=== PATIENT | female | born 2000 | race Two or more races ===

== ENCOUNTER 2018-05-21 16:00 | Emergency (ER) | payer MEDICAID, OTHER ==
[~2018-05-21] VITALS: Ht 162.6 cm; Wt 73.5 kg
[2018-05-21 16:11] VITALS: BP 131/76
== END 2018-05-21 17:34 | disposition home or self-care (01) ==
LOC: ER 16:13
DX: S39.012A Strain of muscle, fascia and tendon of lower back, initial encounter (principal); X50.1XXA Overexertion from prolonged static or awkward postures, initial encounter; Y93.89 Activity, other specified; Y92.89 Other specified places as the place of occurrence of the external cause; Y99.8 Other external cause status

== ENCOUNTER 2018-07-27 10:11 | Emergency (ER) | payer OTHER ==
[~2018-07-27] VITALS: Ht 162.6 cm; Wt 72.6 kg
[2018-07-27 10:25] VITALS: BP 113/61
[2018-07-27] MEDS ORDERED: IBUPROFEN 600 MG TAB PO ONE (11:00)
[2018-07-27] MEDS ORDERED: METHOCARBAMOL 500 MG TAB PO ONE (11:00)
[2018-07-27] MEDS ORDERED: ONDANSETRON ODT 4 MG TAB PO ONE ×2 (12:48→13:00)
== END 2018-07-27 13:22 | disposition home or self-care (01) ==
LOC: ER 10:11
DX: S40.022A Contusion of left upper arm, initial encounter (principal); V53.5XXA Driver of pick-up truck or van injured in collision with car, pick-up truck or van in traffic accident, initial encounter; Y93.89 Activity, other specified; Y99.8 Other external cause status; Y92.410 Unspecified street and highway as the place of occurrence of the external cause
CPT/HCPCS: 99284; Q0162

== ENCOUNTER 2020-06-17 14:40 | Emergency (ER) | payer OTHER ==
[~2020-06-17] VITALS: Ht 162.6 cm; Wt 70.3 kg
[2020-06-17 15:31] VITALS: BP 115/74
== END 2020-06-17 16:00 | disposition home or self-care (01) ==
LOC: ER 14:40
DX: S61.211A Laceration without foreign body of left index finger without damage to nail, initial encounter (principal); W22.8XXA Striking against or struck by other objects, initial encounter; Y93.89 Activity, other specified; Y92.89 Other specified places as the place of occurrence of the external cause; Y99.8 Other external cause status
CPT/HCPCS: 12001; 73140

== ENCOUNTER 2021-02-03 12:53 | Emergency (ER) | payer OTHER ==
[~2021-02-03] VITALS: Ht 162.6 cm; Wt 73.9 kg
[2021-02-03 13:07] VITALS: BP 126/81
[2021-02-03] MEDS ORDERED: traMADol HCL 50 MG TAB PO ONE (15:15)
[2021-02-03] MEDS ORDERED: LIDOCAINE 1% HCL (LOCAL ANESTH.) INJ 20ML MDV IJ ONE (15:15)
== END 2021-02-03 16:22 | disposition home or self-care (01) ==
LOC: ER 12:53
DX: S61.411A Laceration without foreign body of right hand, initial encounter (principal); S00.511A Abrasion of lip, initial encounter; V49.59XA Passenger injured in collision with other motor vehicles in traffic accident, initial encounter; Y93.89 Activity, other specified; Y92.488 Other paved roadways as the place of occurrence of the external cause; Y99.8 Other external cause status
CPT/HCPCS: 12001; 73130; 73630; 99284; J2001

== ENCOUNTER 2021-02-25 13:40 | Emergency (ER) | payer OTHER ==
[~2021-02-25] VITALS: Ht 162.6 cm; Wt 72.6 kg
[2021-02-25 14:39] VITALS: BP 114/74
== END 2021-02-25 15:22 | disposition home or self-care (01) ==
LOC: ER 13:40
DX: S61.411D Laceration without foreign body of right hand, subsequent encounter (principal); X58.XXXD Exposure to other specified factors, subsequent encounter

== ENCOUNTER 2022-03-15 06:35 | Inpatient (IN) | payer MEDICAID, OTHER ==
[~2022-03-15] VITALS: Ht 162.6 cm; Wt 78.9 kg
[2022-03-15] MEDS ORDERED: BUTORPHANOL TARTRATE 2 MG/1 ML VIAL IV PRN ×2 (07:30)
[2022-03-15] MEDS ORDERED: LIDOCAINE 2%HCL (LOCAL ANESTH.) INJ 10ml MDV IJ PRN (07:30)
[2022-03-15] MEDS ORDERED: PROMETHAZINE HCL 25 MG/ML 1ML IV PRN (07:30)
[2022-03-15] MEDS ORDERED: PHISODERM TOP SOLN 240ML BTL TOP PRN (07:30)
[2022-03-15 08:11] LABS: Urine WBC None Seen /hpf (0 - 5)
[2022-03-15 08:29] LABS: Urine Amorphous Crystal FEW /hpf (None Seen); Urine Bacteria NONE SEEN /hpf (None Seen); Urine Blood Negative /uL (Negative); Urine Specific Gravity 1.011 (1.001-1.035)
[2022-03-15 08:33] LABS: Basophils # (auto) 0 10 ^3/uL (0-0.2); Basophils % (auto) 0.1 % (0.0-2.0); Eosinophils # (auto) 0.2 10 ^3/uL (0-0.8); Eosinophils % (auto) 1.6 % (0.0-7.0); Hematocrit 33.5 % (36.0-46.0); Hemoglobin 11.7 g/dL (12.2-16.2); Lymphocytes # (auto) 1.6 10 ^3/uL (0.4-5.4); Lymphocytes % (auto) 17.3 % (10.0-50.0); Mean Corpuscular Hemoglobin 31.6 pg (28.0-32.0); Mean Corpuscular Hgb Conc. 34.8 g/dL (32.0-36.0); Mean Corpuscular Volume 90.6 fL (80.0-100.0); Monocytes # (auto) 0.7 10 ^3/uL (0-1.3); Monocytes % (auto) 7.1 % (0.0-12.0); Neutrophils % (auto) 73.9 % (37.0-80.0); Nucleated Red Blood Cells % 0.1 %; Red Cell Distribution Width 12.7 % (11.8-14.3); White Blood Cell 9.5 10^3/uL (4.4-10.8)
[2022-03-15 08:39] LABS: Calcium 8.6 mg/dL (8.5-10.1); Potassium 3.6 mmol/L (3.5-5.1)
[2022-03-15 08:42] LABS: Alcohol, Urine < 3.0 mg/dL (0-10); Amphetamine Screen, Urine NEGATIVE (NEGATIVE); Barbiturate Scree,Urine NEGATIVE (NEGATIVE); Benzodiazephine Screen, Urine NEGATIVE (NEGATIVE); Cannabinoid Screen, Urine NEGATIVE (NEGATIVE); Cocaine Screen, Urine NEGATIVE (NEGATIVE); Opiate Scree,Urine NEGATIVE (NEGATIVE); Phencyclidine Screen, Urine NEGATIVE (NEGATIVE)
[2022-03-15 08:46] LABS: Albumin 2.6 g/dL (3.4-5.0); Bilirubin, Total 0.2 mg/dL (0.2-1.0); Total Protein 6.6 g/dL (6.4-8.2)
[2022-03-15 08:49] LABS: INR 0.99 (0.9-1.15); Partial Thromboplastin Time 25.5 sec (23.6-33.0)
[2022-03-15] MEDS: LACTATED RINGER'S 1,000 ML IV SCH ×3 (10:11→21:20)
[2022-03-15] MEDS ORDERED: PENICILLIN G POT 5MIL/D5 50ML 50 ML IV ONE (10:30)
[2022-03-15] MEDS ORDERED: TERBUTALINE SULFATE 1 MG/ML 1ML VIAL SC PRN (12:15)
[2022-03-15] MEDS ORDERED: LACT. RINGERS/OXYTOCIN 20UNITS 500 ML IV ONE ×2 (12:15→12:45)
[2022-03-15] MEDS ORDERED: LACT. RINGERS/OXYTOCIN 20UNITS 1,000 ML IV SCH (12:15)
[2022-03-15] MEDS: PENICILLIN G POTASSIUM 2,500,000 UNITS in D5W 5% 50 ML IV SCH ×3 (14:35→22:51)
[2022-03-15] MEDS ORDERED: NALOXONE HCL 0.4 MG/ML VIAL IV ONE ×2 (15:15→16:45)
[2022-03-15] MEDS ORDERED: ePHEDrine SULFATE 50 MG/ML AMP IV ONE ×2 (15:15→16:45)
[2022-03-15] MEDS ORDERED: fentaNYL CITRATE 100 MCG/2 ML VL IV ONE (15:15)
[2022-03-15] MEDS ORDERED: ROPIVACAINE HCL 200 ML EPI SCH (15:15)
[2022-03-15] MEDS ORDERED: LIDOCAINE HCL 2 %PF INJ 10ML AMP IJ ONE (15:15)
[2022-03-15] MEDS ORDERED: LACTATED RINGER'S 500 ML IV ONE (16:45)
[2022-03-15] MEDS ORDERED: SODIUM CHLORIDE 0.9% 500 ML IV PRN (16:45)
[2022-03-16] MEDS ORDERED: ceFAZolin 1GM/50ML 50 ML IV SCH
[2022-03-16] MEDS: PENICILLIN G POTASSIUM 2,500,000 UNITS in D5W 5% 50 ML IV SCH (03:12)
[2022-03-16] MEDS: LACTATED RINGER'S 1,000 ML IV SCH (03:30)
[2022-03-16 07:00] VITALS: BP 110/62
[2022-03-16] MEDS: WITCH HAZEL-GLYCERIN PAD TOP PRN (07:02)
[2022-03-16] MEDS: DERMOPLAST 60ML BOTTLE TOP PRN (07:03)
[2022-03-16] MEDS ORDERED: ONDANSETRON ODT 4 MG TAB PO PRN (09:15)
[2022-03-16 11:00] VITALS: BP 110/62
[2022-03-16] MEDS: IBUPROFEN 800 MG TAB PO SCH (14:00)
[2022-03-16 15:00] VITALS: BP 110/62
[2022-03-16 19:30] VITALS: BP 107/63
[2022-03-16] MEDS: ACETAMINOPHEN 325 MG TAB PO PRN (21:37)
[2022-03-16] MEDS ORDERED: DOCUSATE SOD 100 MG CAP PO SCH (22:00)
[2022-03-17] VITALS: BP 109/56
[2022-03-17] MEDS: IBUPROFEN 800 MG TAB PO SCH ×2 (00:20→05:52)
[2022-03-17] MEDS ORDERED: AMMONIA 0.33 ML INHALANT IN ONE (04:00)
[2022-03-17 05:00] VITALS: BP 107/61
[2022-03-17 06:06] LABS: Rubella Antibodies, IgG <0.90 index (Immune >0.99)
[2022-03-17 07:00] VITALS: BP 107/63
[2022-03-17] MEDS: DERMOPLAST 60ML BOTTLE TOP PRN (07:07)
[2022-03-17] MEDS: ACETAMINOPHEN 325 MG TAB PO PRN (07:07)
[2022-03-17] MEDS: WITCH HAZEL-GLYCERIN PAD TOP PRN (07:07)
[2022-03-17] MEDS ORDERED: PREN-96 PO (07:20)
[2022-03-17 08:06] LABS: RPR Non Reactive (Non Reactive)
[2022-03-17 11:00] VITALS: BP 119/69
[2022-03-17] MEDS ORDERED: TETANUS-DIPTH-ACEL PERTUSSIS 0.5ML SYR Tdap IM ONE (11:30)
== END 2022-03-17 13:14 | disposition home or self-care (01) | DRG 560 ==
LOC: LDRP 06:35 → OBSVTOIN 07:25 → LDRP 10:18
PROVIDERS: ADMIT Obstetrics & Gynecology; ATTEND Obstetrics & Gynecology
PROC: 10E0XZZ Delivery of Products of Conception, External Approach (ICD-10-PCS; principal; 2022-03-16)
PROC: 0HQ9XZZ Repair Perineum Skin, External Approach (ICD-10-PCS; 2022-03-16)
PROC: 3E0R3BZ Introduction of Anesthetic Agent into Spinal Canal, Percutaneous Approach (ICD-10-PCS; 2022-03-16)
PROC: 00HU33Z Insertion of Infusion Device into Spinal Canal, Percutaneous Approach (ICD-10-PCS; 2022-03-16)
DX: O42.913 Preterm premature rupture of membranes, unspecified as to length of time between rupture and onset of labor, third trimester (principal); Z37.0 Single live birth; O70.0 First degree perineal laceration during delivery; Z20.822 Contact with and (suspected) exposure to COVID-19; Z3A.36 36 weeks gestation of pregnancy
CPT/HCPCS: 36415; 59025; 59409; 76805; 80053; 80307; 81001; 81002; 84112; 85025; 85610; 85730; 86592; 86703; 86762; 86850; 86900; 86901; 87081; 87340; 90715; 94760; 96360; 96361; 96365; 96366; G0378; J0690; J2001; J2540; J2590; J7060